=== PATIENT | female | born 1965 | race Caucasian/White ===

== ENCOUNTER → 2019-05-20 | Outpatient (CLI) | payer OTHER ==
[2019-05-20 10:41] VITALS: BP 136/69
[2019-05-20 11:33] VITALS: BP 160/74
--- NOTE | 2019-05-25 10:50 | CARD ---
[address] [address] CARDIAC CATH REPORT Name: DEVYNCÉSAR LEON Room: [facility]#: [id number] Admission: 05/20/19 Attend Phys: Ameya Bauer MD Discharge: Date of : 67 Report #: [id number] THIS REPORT FOR: //name// CC: Andrade Bauer DATE OF SERVICE: 05/20/2019 PROCEDURE: Placement of implantable loop recorder. INDICATION: Recurrent syncope. DESCRIPTION OF PROCEDURE: After informed consent was obtained, the patient was brought to the cardiac holding area. The area of the chest was prepped and draped in sterile fashion. The area of the fourth intercostal space, left of the sternum was anesthetized with 1% lidocaine with epinephrine. After the area was anesthetized, a small incision was made just lateral to the sternum. Using the implantation tool, a loop recorder was placed without difficulty. The incision was then closed with a single subcuticular stitch of 4-0 Vicryl. A Steri-Strip was placed across the incision and a sterile dressing placed. The patient tolerated the procedure well without complication. Implanted device was a [employer] BioMonitor 2-AF, model #[id number], serial #[id number] implantable loop recorder. IMPRESSION: 1. Recurrent syncope. 2. Successful placement of implantable loop recorder without complication. <ELECTRONICALLY SIGNED> By: Ameya Bauer MD, [facility] 05/25/19 1050 [id number] 12[facility], DIMITRY /nt
== END | disposition home or self-care (01) ==
LOC: M.CL 10:20
DX: R55 Syncope and collapse (principal)

== ENCOUNTER → 2019-07-29 | Outpatient (CLI) | payer OTHER ==
[2019-07-29 10:14] VITALS: BP 126/76
[2019-07-29 10:23] VITALS: BP 126/76
--- NOTE | 2019-07-31 11:04 | CARD ---
[address] [address] CARDIAC CATH REPORT Name: CÉSAR SHEPARD Room: [facility]#: [id number] Admission: 07/29/19 Attend Phys: Ameya Bauer MD Discharge: Date of : 67 Report #: [id number] THIS REPORT FOR: //name// CC: Sampson Bauer PROCEDURE: Implantable loop recorder removal. DESCRIPTION OF PROCEDURE: After informed consent was obtained, the area of the left chest was prepped and draped in sterile fashion. Local anesthesia was achieved with 1% lidocaine. Next, a small incision was made proximal to where the implantable loop recorder was placed. The implantable loop recorder was then removed. The skin incision was then closed with Dermabond. The patient tolerated the procedure well without complication. IMPRESSION: 1. Implantable loop recorder in place. 2. Removal of implantable loop recorder. <ELECTRONICALLY SIGNED> By: Ameya Bauer MD, FACC 07/31/19 1104 [id number] Kelly Bauer MD, FACC /nt
== END | disposition home or self-care (01) ==
LOC: M.CL 09:39
DX: Z45.09 Encounter for adjustment and management of other cardiac device (principal)